=== PATIENT | male | born 1965 | race Caucasian/White ===

== ENCOUNTER 2019-01-25 14:41 | Emergency (ER) | payer OTHER ==
[~2019-01-25] VITALS: Ht 172.7 cm; Wt 77.7 kg
[2019-01-25 14:54] VITALS: BP 122/70
[2019-01-25] MEDS ORDERED: hydrOXYzine HCL 25 MG TAB PO ONE (15:45)
[2019-01-25] MEDS ORDERED: DEXAMETHASONE 10 MG/ML VIAL IM ONE (15:45)
[2019-01-25] MEDS ORDERED: ALBUTEROL SULFATE/IPRATROPIU 3 ML SOL IH ONE (15:45)
[2019-01-25] MEDS ORDERED: cefTRIAXone 1,000 MG in LIDOCAINE 1% ***ER ONLY *** 2.1 ML IM ONE (15:45)
[2019-01-25] MEDS ORDERED: PROMETHAZINE 25 MG/ML VIAL IM ONE (15:45)
--- NOTE | 2019-01-25 16:05 | NUR ---
PT BIB SELF FOR PRODUCTIVE COUGH X4 DAYS W/ GENERAL WEAKNESS, PT STATES HE SMOKE CIGARETTES DAILY ABOUT 4-5. RR EVEN AND UNLABORED, BS DIMINISHED THROUGHOUT. PT REPORTS PRODUCTIVE COUGH. PT IS AWAKE AND ALERT.
[2019-01-25] MEDS ORDERED: cefTRIAXone 1,000 MG VIAL ONE (16:22)
[2019-01-25] MEDS ORDERED: LIDOCAINE MPF 1% - 5 mL VIAL 5 ML ONE (16:23)
[2019-01-25 16:45] VITALS: BP 132/65
--- NOTE | 2019-01-25 16:45 | NUR ---
Patient discharged with v/s stable. Written and verbal after care instructions given and explained. Patient alert, oriented and verbalized understanding of instructions. Ambulatory with steady gait. All questions addressed prior to discharge. ID band removed. Patient advised to follow up with PMD. Rx of LEVAQUIN, PREDNISONE, LEVAQUIN given. Patient educated on indication of medication including possible reaction and side effects. Opportunity to ask questions provided and answered.
== END 2019-01-25 16:45 | disposition home or self-care (01) ==
LOC: MED 14:41
DX: J44.1 Chronic obstructive pulmonary disease with (acute) exacerbation (principal); R11.10 Vomiting, unspecified; R53.1 Weakness; F17.210 Nicotine dependence, cigarettes, uncomplicated; Z71.6 Tobacco abuse counseling
CPT/HCPCS: 71046; 94640; 96372; 99283; J0696; J1100; J2001; J2550; J7620

== ENCOUNTER 2020-02-05 20:33 | Emergency (ER) | payer SELFPAY ==
[~2020-02-05] VITALS: Ht 172.7 cm; Wt 80.3 kg
[2020-02-05 20:36] VITALS: BP 147/80
--- NOTE | 2020-02-05 20:39 | NUR ---
PT AMBULATED TO BED #4
--- NOTE | 2020-02-05 20:45 | NUR ---
54 Y/O MALE PRESENTED TO ED C/O LEFT SIDED GROIN PAIN X1 DAY. PT STATES HE WAS AT WORK PICKING UP A HEAVY ITEM AND FELT A SHARP PAIN IN HIS LEFT GROIN REGION. PT RATES PAIN 8/ , STATES IT HAS BEEN THOBBING ALL DAY BUT NOW IT ONLY HURTS WHEN HE STARTS TO MOVE. OBSERVED SWELLING AND PALPATED MASS ON LEFT GROIN REGION. PT DENIES TENDERNESS TO TOUCH. PT DENIES N/V/D. PT BREATHING EVEN AND UNLABORED. A/O X4. VSS. PMH: NONE NKA
[2020-02-05] MEDS ORDERED: KETOROLAC 60 MG/2 ML VIAL IM ONE (20:50)
--- NOTE | 2020-02-05 20:50 | NUR ---
PT AMBULATED TO RESTROOM W/ STEADY GAIT.
--- NOTE | 2020-02-05 20:54 | NUR ---
PT AMBULATED TO BED FROM RESTROOM W/ STEADY GAIT.
--- NOTE | 2020-02-05 20:55 | NUR ---
ERMD AT BEDSIDE FOR EVAULATION.
--- NOTE | 2020-02-05 21:37 | NUR ---
PT SLEEPING IN BED, BED LOCKED AND IN LOWEST POSITION, VISIBLE RISE AND FALL OF CHEST, RR EVEN AND UNLABORED, AROUSABLE BY VERBAL STIMULATION. HOB ELEVATED, SIDE RAIL X1.
[2020-02-05 21:57] VITALS: BP 147/80
--- NOTE | 2020-02-05 21:57 | NUR ---
Yang duckworth in ED - 02/05/20 at 2211 by JUANCARLOS PATIENT ELOPED FROM FACILITY. DISCHARGE INSTRUCTIONS NOT GIVEN TO PATIENT. DR. MA NOTIFIED.
--- NOTE | 2020-02-05 21:57 | NUR ---
PT LEFT W/O DISCHARGE INSTRUCTIONS. DR. MA NOTIFIED.
== END 2020-02-05 21:57 | disposition home or self-care (01) ==
LOC: MED 20:33
DX: R10.30 Lower abdominal pain, unspecified (principal); F17.210 Nicotine dependence, cigarettes, uncomplicated
CPT/HCPCS: 81002; 96372; 99283; J1885

== ENCOUNTER 2020-02-14 18:26 | Emergency (ER) | payer SELFPAY ==
[~2020-02-14] VITALS: Ht 172.7 cm; Wt 79.4 kg
[2020-02-14 19:08] VITALS: BP 134/81
--- NOTE | 2020-02-14 19:13 | NUR ---
c/o left inguinal area hernia---large swelling, tender---difficult to reduce as per pt denies dysuria--- seen yesterday but eloped 2 to being on parole had to leave prior to 2200hrs
[2020-02-14] MEDS ORDERED: IBUPROFEN 600 MG TAB PO ONE (19:30)
--- NOTE | 2020-02-14 19:30 | NUR ---
RECEIVED REPORT FROM MCKAYLA ANGUIANO FOR CONTINUITY OF CARE.
--- NOTE | 2020-02-14 20:12 | NUR ---
PT LYING IN BED, RR EVEN AND UNLABORED. NO NEW COMPLAINS AT THIS TIME. BED IN LOWEST POSITION, SIDE RAIL X1. WILL CONTINUE TO MONITOR.
[2020-02-14 20:17] VITALS: BP 134/81
== END 2020-02-14 20:18 | disposition home or self-care (01) ==
LOC: MED 18:26
DX: K59.00 Constipation, unspecified (principal); K86.9 Disease of pancreas, unspecified; K35.80 Unspecified acute appendicitis; K81.0 Acute cholecystitis
CPT/HCPCS: 99282